=== PATIENT | male | born 1960 ===

== ENCOUNTER 2019-05-27 07:54 | Outpatient (CLI) | payer OTHER ==
[~2019-05-27] VITALS: Ht 177.8 cm; Wt 94.3 kg
== END 2019-05-27 08:20 | disposition home or self-care (01) ==
LOC: OFIC 805 07:54
DX: J31.0 Chronic rhinitis (principal); H61.21 Impacted cerumen, right ear

== ENCOUNTER 2022-09-05 10:41 | Outpatient (CLI) | payer OTHER | END 2022-09-05 10:54 | disposition home or self-care (01) | LOC: SONOGRAMA 10:41 | PROVIDERS: ATTEND Physical Medicine & Rehabilitation Hospice and Palliative Medicine | DX: M25.512 Pain in left shoulder (principal); M75.102 Unspecified rotator cuff tear or rupture of left shoulder, not specified as traumatic; M25.511 Pain in right shoulder; M75.101 Unspecified rotator cuff tear or rupture of right shoulder, not specified as traumatic ==

== ENCOUNTER 2022-09-05 12:12 | Outpatient (CLI) | payer OTHER | END 2022-09-05 12:22 | disposition home or self-care (01) | LOC: PPH VACUNA 12:12 | PROVIDERS: ATTEND Emergency Medicine Pediatric Emergency Medicine | DX: Z23 Encounter for immunization (principal) ==